=== PATIENT | female | born 1980 | race Caucasian/White ===

== ENCOUNTER → 2018-12-14 | Outpatient (REF) | payer OTHER | LOC: M LAB REF 16:33 | PROVIDERS: ATTEND Physician Assistant | DX: N39.0 Urinary tract infection, site not specified (principal) ==

== ENCOUNTER → 2019-01-09 | Outpatient (REF) | payer OTHER ==
[2019-01-09 13:32] LABS: APPEARANCE, URINE CLEAR (CLEAR); BACTERIA, URINE AUTO NEGATIVE (NEGATIVE); BILIRUBIN, URINE AUTO NEGATIVE (NEGATIVE); BLOOD, URINE BLOOD NEGATIVE (NEGATIVE); COLOR, URINE YELLOW (YELLOW); GLUCOSE, URINE (UA) AUTO NEGATIVE (NEGATIVE); KETONE, URINE AUTO NEGATIVE (NEGATIVE); LEUKOCYTE ESTERASE, URINE AUTO NEGATIVE (NEGATIVE); NITRITE, URINE AUTO NEGATIVE (NEGATIVE); PROTEIN, URINE AUTO NEGATIVE (NEGATIVE); RBC, URINE AUTO 2 /HPF (0-3); SPECIFIC GRAVITY URINE AUTO 1.016 (1.002-1.035); SQUAMOUS EPITHELIAL CELL UR AU 2 /HPF (0-6); UROBILINOGEN, URINE AUTO 0.2 mg/dL (0.0-2.0); WBC, URINE AUTO 1 /HPF (0-3)
== END ==
LOC: M SMT 12:37
PROVIDERS: ATTEND Nurse Practitioner Family
DX: N39.0 Urinary tract infection, site not specified (principal)

== ENCOUNTER → 2023-05-20 | Outpatient (REF) | payer OTHER ==
[2023-05-20 18:10] LABS: BASO % 0.2 % (0.0-1.0); EOS # 0.1 10^3/uL (0.0-0.5); EOS % 1.9 % (0.0-3.0); HEMATOCRIT 34.4 % (36.0-47.0); HEMOGLOBIN 11.3 g/dl (12.0-15.5); LYMPH # 2.1 10^3/uL (1.5-5.0); MEAN CORPUSCULAR HEMOGLOBIN 30.7 pg (27.0-33.0); MEAN CORPUSCULAR HGB CONC 32.8 g/dl (32.0-36.5); MEAN CORPUSCULAR VOLUME 93.5 fl (80.0-96.0); MONO # 0.4 10^3/uL (0.0-0.8); MONO % 7.8 % (2.0-8.0); NEUTROPHILS # 2.6 10^3/uL (1.5-8.5); NEUTROPHILS % 49.9 % (36.0-66.0); PLATELET COUNT, AUTOMATED 315 10^3/uL (150-450); RED BLOOD COUNT 3.68 10^6/uL (4.00-5.40); WHITE BLOOD COUNT 5.2 10^3/uL (4.0-10.0)
[2023-05-20 18:21] LABS: ERYTHROCYTE SEDIMENTATION RATE 11 mm/hr (0-20)
[2023-05-20 18:30] LABS: THYROID STIMULATING HORMONE 2.738 uIU/ML (0.55-4.78); TOTAL 25(OH) VITAMIN D 24.8 NG/ML (20.0-100.0)
[2023-05-20 18:31] LABS: ALKALINE PHOSPHATASE 32 U/L (46-116); ALT/SGPT 11 U/L (7.0-40); AST/SGOT 12 U/L (<34); BILIRUBIN,DIRECT < 0.1 MG/DL (<0.4); BILIRUBIN,TOTAL 0.3 MG/DL (0.3-1.2); FERRITIN 16.6 NG/ML (7.3-270.7); IRON (FE) 56 UG/DL (50-170); TOTAL PROTEIN 6.7 G/DL (5.7-8.2)
[2023-05-20 18:35] LABS: C REACTIVE PROTEIN QUANTITATIV < 0.40 MG/DL (<1.0); VITAMIN B12 LEVEL 266 PG/ML (211-911)
[2023-05-20 18:36] LABS: IMMUNOGLOBULIN A 142.7 MG/DL (40-350)
[2023-05-23 21:07] LABS: TISSUE TRANSGLUTAMINASE IgA <2 U/mL (0-3); TISSUE TRANSGLUTAMINASE IgG <2 U/mL (0-5)
== END ==
LOC: M LABDRAWC 16:52
PROVIDERS: ATTEND Student in an Organized Health Care Education/Training Program
DX: K62.5 Hemorrhage of anus and rectum (principal); K51.90 Ulcerative colitis, unspecified, without complications; R10.31 Right lower quadrant pain

== ENCOUNTER → 2023-05-23 | Outpatient (REF) | payer OTHER | LOC: M LABDRAWC 11:15 | PROVIDERS: ATTEND Student in an Organized Health Care Education/Training Program | DX: K62.5 Hemorrhage of anus and rectum (principal); R10.31 Right lower quadrant pain; K51.90 Ulcerative colitis, unspecified, without complications ==

== ENCOUNTER → 2023-07-20 | Outpatient (REF) | payer OTHER ==
[2023-07-20 11:49] LABS: HEPATITIS B SURFACE ANTIBODY NEGATIVE (POSITIVE)
== END ==
LOC: M LABDRAWC 10:59
PROVIDERS: ATTEND Student in an Organized Health Care Education/Training Program
DX: K51.218 Ulcerative (chronic) proctitis with other complication (principal)

== ENCOUNTER 2023-08-26 06:53 | Outpatient (CLI) | payer OTHER ==
[~2023-08-26] VITALS: Ht 170.2 cm; Wt 69.0 kg
[~2023-08-26 06:53] MED LIST: NS 1,000 ML IV SCH
[2023-08-26 07:00] VITALS: BP 118/59; O2SAT 98
[2023-08-26] MEDS ORDERED: VEDOLIZUMAB 300 MG in NS 250 ML IV ONE (07:00)
[2023-08-26] MEDS ORDERED: methylPREDNISolone 125MG 2ML VIAL IV PRN (07:01)
[2023-08-26] MEDS ORDERED: diphenhydrAMINE 50MG/ML VIAL IV PRN (07:01)
[2023-08-26] MEDS ORDERED: EPINEPHrine INJ 1 MG/ML 1ML AMP IM PRN (07:01)
[2023-08-26] MEDS ORDERED: ALBUTEROL SULFATE 2.5MG/0.5ML INH NEB SOLN INH PRN (07:01)
[2023-08-26 08:55] VITALS: BP_SYST 106; BP_SYST 114; BP_DIAS 56; BP_DIAS 57; O2SAT 98
== END 2023-08-26 08:55 | disposition home or self-care (01) ==
LOC: M INFU 06:53
PROVIDERS: ATTEND Student in an Organized Health Care Education/Training Program
DX: K51.218 Ulcerative (chronic) proctitis with other complication (principal)
CPT/HCPCS: 96365; J3380

== ENCOUNTER 2023-09-09 07:00 | Outpatient (CLI) | payer OTHER ==
[~2023-09-09] VITALS: Ht 167.6 cm; Wt 64.5 kg
[2023-09-09 07:00] VITALS: BP 114/55; O2SAT 97
[~2023-09-09 07:00] MED LIST changes: +VEDOLIZUMAB 300 MG in NS 250 ML IV ONE
[2023-09-09] MEDS ORDERED: EPINEPHrine INJ 1 MG/ML 1ML AMP IM PRN (07:01)
[2023-09-09] MEDS ORDERED: diphenhydrAMINE 50MG/ML VIAL IV PRN (07:01)
[2023-09-09] MEDS ORDERED: ALBUTEROL SULFATE 2.5MG/0.5ML INH NEB SOLN INH PRN (07:01)
[2023-09-09] MEDS ORDERED: methylPREDNISolone 125MG 2ML VIAL IV PRN (07:01)
[2023-09-09 08:20] VITALS: BP 112/67; O2SAT 100
== END 2023-09-09 08:20 ==
LOC: M INFU 07:00
PROVIDERS: ATTEND Student in an Organized Health Care Education/Training Program
DX: K51.218 Ulcerative (chronic) proctitis with other complication (principal)
CPT/HCPCS: 96365; J3380

== ENCOUNTER 2023-10-07 07:40 | Outpatient (CLI) | payer OTHER ==
[~2023-10-07] VITALS: Ht 170.2 cm; Wt 64.0 kg
[2023-10-07 07:40] VITALS: BP 107/71; O2SAT 100
[~2023-10-07 07:40] MED LIST changes: +ALBUTEROL SULFATE 2.5MG/0.5ML INH NEB SOLN INH PRN; +EPINEPHrine INJ 1 MG/ML 1ML AMP IM PRN; -NS 1,000 ML IV SCH; -VEDOLIZUMAB 300 MG in NS 250 ML IV ONE; +diphenhydrAMINE 50MG/ML VIAL IV PRN; +methylPREDNISolone 125MG 2ML VIAL IV PRN
[2023-10-07] MEDS ORDERED: NS 1,000 ML IV SCH (08:00)
[2023-10-07] MEDS: VEDOLIZUMAB 300 MG in NS 250 ML IV ONE (08:08)
[2023-10-07 08:53] VITALS: BP 111/65; O2SAT 100
== END 2023-10-07 09:00 ==
LOC: M INFU 07:40
PROVIDERS: ATTEND Student in an Organized Health Care Education/Training Program
DX: K51.218 Ulcerative (chronic) proctitis with other complication (principal)
CPT/HCPCS: 96365; J3380

== ENCOUNTER 2023-12-02 08:00 | Outpatient (CLI) | payer OTHER ==
[~2023-12-02] VITALS: Ht 162.6 cm; Wt 65.0 kg
[~2023-12-02 08:00] MED LIST changes: +NS 1,000 ML IV SCH
[2023-12-02 08:15] VITALS: BP 117/64; O2SAT 99
[2023-12-02] MEDS: VEDOLIZUMAB 300 MG in NS 250 ML IV ONE (08:49)
[2023-12-02 09:30] VITALS: BP 126/72; O2SAT 100
== END 2023-12-02 09:30 ==
LOC: M INFU 08:00
PROVIDERS: ATTEND Student in an Organized Health Care Education/Training Program
DX: K51.218 Ulcerative (chronic) proctitis with other complication (principal)
CPT/HCPCS: 96365; J3380

== ENCOUNTER 2024-01-27 08:02 | Outpatient (CLI) | payer OTHER ==
[~2024-01-27] VITALS: Ht 170.2 cm; Wt 66.0 kg
[2024-01-27 08:10] VITALS: BP 127/81; TEMP 98; O2SAT 100
[2024-01-27] MEDS: VEDOLIZUMAB 300 MG in NS 250 ML IV ONE (08:40)
[2024-01-27 09:15] VITALS: BP 134/81; O2SAT 99
== END 2024-01-27 09:15 | disposition home or self-care (01) ==
LOC: M INFU 08:02
PROVIDERS: ATTEND Student in an Organized Health Care Education/Training Program
DX: K51.218 Ulcerative (chronic) proctitis with other complication (principal)
CPT/HCPCS: 96365; J3380

== ENCOUNTER → 2024-09-10 | Outpatient (CLI) | payer BC | LOC: M WHC 08:20 | PROVIDERS: ATTEND Advanced Practice Midwife | DX: Z12.31 Encounter for screening mammogram for malignant neoplasm of breast (principal); R92.333 Mammographic heterogeneous density, bilateral breasts; R92.8 Other abnormal and inconclusive findings on diagnostic imaging of breast ==

== ENCOUNTER → 2024-10-09 | Outpatient (CLI) | payer BC | LOC: M WHC 08:06 | PROVIDERS: ATTEND Advanced Practice Midwife | DX: R92.2 Inconclusive mammogram (principal) | CPT/HCPCS: 76641; 77066; G0279 ==